=== PATIENT | female | born 1945 | race Caucasian/White ===

== ENCOUNTER → 2016-10-01 | Outpatient (CLI) | payer OTHER ==
[~2016-10-01] MED LIST: CENTRUM SILVER1 EAC4 PO; EXCEDRIN CAPLE1 EACH PO; FISH OIL 1,001000 M2 PO; SYNTHROID88 MCG PO; TUMS PO
== END ==
LOC: RAD 02:43
DX: Z12.31 Encounter for screening mammogram for malignant neoplasm of breast (principal)

== ENCOUNTER → 2017-10-05 | Outpatient (CLI) | payer OTHER | LOC: RAD 00:44 | DX: Z12.31 Encounter for screening mammogram for malignant neoplasm of breast (principal); Z90.10 Acquired absence of unspecified breast and nipple ==

== ENCOUNTER → 2019-11-07 | Outpatient (CLI) | payer OTHER | LOC: BC 12:53 | DX: Z12.31 Encounter for screening mammogram for malignant neoplasm of breast (principal) ==

== ENCOUNTER → 2020-11-26 | Outpatient (CLI) | payer OTHER | LOC: RAD 12:44 | PROVIDERS: ATTEND Obstetrics & Gynecology | DX: Z12.31 Encounter for screening mammogram for malignant neoplasm of breast (principal); Z90.11 Acquired absence of right breast and nipple ==